=== PATIENT | male | born 1955 | race Two or more races ===

== ENCOUNTER 2023-02-16 19:39 | Inpatient (IN) | payer MEDICARE, MEDICAID ==
[~2023-02-16] VITALS: Ht 175.3 cm; Wt 91.6 kg
[2023-02-16] MEDS ORDERED: MORPHINE SULFATE 4 MG/ML SYR/VIAL IV ONE (20:00)
[2023-02-16] MEDS ORDERED: ONDANSETRON HCL 4 MG/2 ML VIAL IV ONE (20:00)
[2023-02-16 20:05] LABS: Basophils # (auto) 0 10 ^3/uL (0-0.2); Basophils % (auto) 0.8 % (0.0-2.0); Eosinophils # (auto) 0 10 ^3/uL (0-0.8); Eosinophils % (auto) 1.1 % (0.0-7.0); Hematocrit 49.1 % (41.0-53.0); Hemoglobin 16.7 g/dL (13.5-17.5); Lymphocytes # (auto) 0.9 10 ^3/uL (0.4-5.4); Lymphocytes % (auto) 21.9 % (10.0-50.0); Mean Corpuscular Hemoglobin 30.1 pg (28.0-32.0); Mean Corpuscular Hgb Conc. 34.1 g/dL (32.0-36.0); Mean Corpuscular Volume 88.3 fL (80.0-100.0); Monocytes # (auto) 0.5 10 ^3/uL (0-1.3); Monocytes % (auto) 11.9 % (0.0-12.0); Neutrophils # (auto) 2.6 10 ^3/uL (1.6-8.6); Neutrophils % (auto) 64.3 % (37.0-80.0); Nucleated Red Blood Cells % 0.7 %; Red Blood Cells 5.56 10^6/uL (4.5-5.90); Red Cell Distribution Width 13.6 % (11.8-14.3)
[2023-02-16 20:21] LABS: Albumin 3.8 g/dL (3.4-5.0); Magnesium 2.1 mg/dL (1.6-2.6); Potassium 3.6 mmol/L (3.5-5.1)
[2023-02-16 20:24] LABS: BUN/Creatinine Ratio 14.5 (10.0-20.0); Bilirubin, Total 0.8 mg/dL (0.2-1.0); Total Protein 6.9 g/dL (6.4-8.2)
[2023-02-16 21:15] LABS: Urine WBC None Seen /hpf (0 - 3)
[2023-02-16 21:22] LABS: Urine Bacteria NONE SEEN /hpf (None Seen); Urine Blood Negative /uL (Negative); Urine Specific Gravity 1.007 (1.001-1.035)
[2023-02-16] MEDS ORDERED: HEPARIN SODIUM (PORCINE) 5000 UNITS/ML 1ML VIAL IV ONE (23:45)
[2023-02-16] MEDS ORDERED: HEPARIN DRIP/D5W 100UNITS/ML 250 ML IV SCH (23:45)
[2023-02-17] VITALS (12 sets, daily range): BP systolic 139–171; BP diastolic 81–98
[2023-02-17] MEDS ORDERED: MORPHINE SULFATE 4 MG/ML SYR/VIAL IV ONE
[2023-02-17] MEDS ORDERED: ONDANSETRON HCL 4 MG/2 ML VIAL IV ONE
[2023-02-17 00:26] LABS: INR 1.03 (0.9-1.15); Partial Thromboplastin Time 23.9 SEC (24.5-34.5)
[2023-02-17] MEDS ORDERED: ACETAMINOPHEN 325 MG TAB PO PRN (01:15)
[2023-02-17] MEDS ORDERED: DEXTROSE (50%) 50ML SYRG IV PRN (01:15)
[2023-02-17] MEDS ORDERED: HYDROcodone-ACET 5/325MG TAB PO PRN (01:15)
[2023-02-17] MEDS ORDERED: DOCUSATE SOD 100 MG CAP PO PRN (01:15)
[2023-02-17] MEDS ORDERED: MORPHINE SULFATE INJ 2 MG/ml SYRG IV PRN ×3 (01:15→15:15)
[2023-02-17] MEDS ORDERED: ONDANSETRON HCL 4 MG/2 ML VIAL IV PRN (01:15)
[2023-02-17] MEDS: SODIUM CHLORIDE 0.9% 1,000 ML IV SCH ×3 (03:04→20:35)
[2023-02-17] MEDS: ACCU-CHEK COMFORT CURVE STRIP VI SCH ×4 (06:15→22:39)
[2023-02-17] MEDS ORDERED: NITROGLYCERIN 0.4 MG SL TAB SL PRN ×2 (06:45→15:15)
[2023-02-17 07:02] LABS: Basophils # (auto) 0 10 ^3/uL (0-0.2); Basophils % (auto) 0.4 % (0.0-2.0); Eosinophils # (auto) 0.1 10 ^3/uL (0-0.8); Eosinophils % (auto) 1.9 % (0.0-7.0); Hemoglobin 16.3 g/dL (13.5-17.5); Lymphocytes % (auto) 30.1 % (10.0-50.0); Mean Corpuscular Hemoglobin 30.6 pg (28.0-32.0); Mean Corpuscular Hgb Conc. 34.7 g/dL (32.0-36.0); Mean Corpuscular Volume 88.4 fL (80.0-100.0); Monocytes # (auto) 0.4 10 ^3/uL (0-1.3); Monocytes % (auto) 13.1 % (0.0-12.0); Neutrophils # (auto) 1.8 10 ^3/uL (1.6-8.6); Neutrophils % (auto) 54.5 % (37.0-80.0); Nucleated Red Blood Cells % 0.4 %; Red Blood Cells 5.32 10^6/uL (4.5-5.90); Red Cell Distribution Width 13.5 % (11.8-14.3); White Blood Cell 3.4 10^3/uL (4.4-10.8)
[2023-02-17 07:32] LABS: Potassium 3.7 mmol/L (3.5-5.1)
[2023-02-17] MEDS: InsuLIN REG 1unit/0.01ml Soln (100units/ml) SC SCH ×4 (07:32→23:32)
[2023-02-17] MEDS: FAMOTIDINE (10MG/ML) 2ML VL IV SCH ×2 (07:32→22:37)
[2023-02-17 07:46] LABS: Albumin 3.6 g/dL (3.4-5.0); Bilirubin, Total 0.7 mg/dL (0.2-1.0); Calcium 8.7 mg/dL (8.5-10.1); Total Protein 6.6 g/dL (6.4-8.2)
[2023-02-17 08:33] LABS: INR 1.07 (0.9-1.15); Partial Thromboplastin Time 55.5 SEC (24.5-34.5)
[2023-02-17] MEDS ORDERED: IODIXANOL 320MG/ML 100ML BTL IV ONE ×3 (13:03→14:31)
[2023-02-17] MEDS ORDERED: HEPARIN IN NS 1000Units/500mL 1,500 ML ONE (13:03)
[2023-02-17] MEDS ORDERED: LIDOCAINE 2%HCL (LOCAL ANESTH.) INJ 20ML MDV ONE (13:03)
[2023-02-17] MEDS ORDERED: HEPARIN SODIUM (PORCINE) 5000 UNITS/ML 1ML VIAL ONE ×2 (13:23→14:10)
[2023-02-17] MEDS ORDERED: MIDAZOLAM HCL 2MG/2ML 2ml VIAL (1mg/ml) ONE (13:24)
[2023-02-17] MEDS ORDERED: fentaNYL CITRATE 100 MCG/2 ML VL ONE (13:24)
[2023-02-17] MEDS ORDERED: VERAPAMIL 2.5MG/ML INJ 2ML VIAL IV ONE (13:24)
[2023-02-17 14:37] LABS: Cholesterol 211 mg/dL (< 200); HDL Cholesterol 50 mg/dL (40-59); LDL Cholesterol 129 mg/dL (< 100); Triglycerides 189 mg/dL (< 150)
[2023-02-17] MEDS ORDERED: ASPirin 325 MG TAB ONE (14:55)
[2023-02-17] MEDS ORDERED: CLOPIDOGREL 300 MG TAB ONE (14:55)
[2023-02-17] MEDS ORDERED: SODIUM CHLORIDE 0.9% 1,000 ML IV SCH (15:00)
[2023-02-17] MEDS ORDERED: FURO40TA4 PO (17:26)
[2023-02-17] MEDS ORDERED: BENZ0.5T19 PO (17:26)
[2023-02-17] MEDS ORDERED: CLON0.5T4 PO (17:26)
[2023-02-17] MEDS ORDERED: METF-372 PO (17:26)
[2023-02-17] MEDS ORDERED: ARIP5TAB36 PO (17:26)
[2023-02-17] MEDS ORDERED: CARI1CAP PO (17:26)
[2023-02-17] MEDS ORDERED: ISO60SRT PO (17:26)
[2023-02-17] MEDS ORDERED: SERT100T PO (17:26)
[2023-02-17] MEDS ORDERED: SITA100T7 PO (17:26)
[2023-02-17] MEDS ORDERED: CLOP75TA70 PO (17:26)
[2023-02-17 20:08] LABS: Basophils # (auto) 0 10 ^3/uL (0-0.2); Basophils % (auto) 0.5 % (0.0-2.0); Eosinophils # (auto) 0.2 10 ^3/uL (0-0.8); Eosinophils % (auto) 3.9 % (0.0-7.0); Hematocrit 46.6 % (41.0-53.0); Hemoglobin 16.1 g/dL (13.5-17.5); Lymphocytes % (auto) 22.7 % (10.0-50.0); Mean Corpuscular Hemoglobin 30.6 pg (28.0-32.0); Mean Corpuscular Hgb Conc. 34.6 g/dL (32.0-36.0); Mean Corpuscular Volume 88.5 fL (80.0-100.0); Monocytes # (auto) 0.4 10 ^3/uL (0-1.3); Monocytes % (auto) 10.4 % (0.0-12.0); Neutrophils # (auto) 2.6 10 ^3/uL (1.6-8.6); Neutrophils % (auto) 62.5 % (37.0-80.0); Nucleated Red Blood Cells % 0.4 %; Red Blood Cells 5.26 10^6/uL (4.5-5.90); Red Cell Distribution Width 13.4 % (11.8-14.3); White Blood Cell 4.2 10^3/uL (4.4-10.8)
[2023-02-17] MEDS ORDERED: HEPARIN DRIP/D5W 100UNITS/ML 250 ML IV SCH (20:15)
[2023-02-18 02:28] LABS: INR 1.07 (0.9-1.15); Partial Thromboplastin Time 43.7 SEC (24.5-34.5)
[2023-02-18] MEDS ORDERED: HEPARIN DRIP/D5W 100UNITS/ML 250 ML IV SCH (03:30)
[2023-02-18 05:00] VITALS: BP 123/70
[2023-02-18 06:30] LABS: Basophils # (auto) 0 10 ^3/uL (0-0.2); Basophils % (auto) 0.7 % (0.0-2.0); Eosinophils # (auto) 0.2 10 ^3/uL (0-0.8); Eosinophils % (auto) 5.9 % (0.0-7.0); Hematocrit 43.5 % (41.0-53.0); Hemoglobin 15.2 g/dL (13.5-17.5); Lymphocytes # (auto) 0.9 10 ^3/uL (0.4-5.4); Lymphocytes % (auto) 28.4 % (10.0-50.0); Mean Corpuscular Hgb Conc. 34.9 g/dL (32.0-36.0); Mean Corpuscular Volume 88.9 fL (80.0-100.0); Monocytes # (auto) 0.3 10 ^3/uL (0-1.3); Monocytes % (auto) 10.8 % (0.0-12.0); Neutrophils # (auto) 1.7 10 ^3/uL (1.6-8.6); Neutrophils % (auto) 54.2 % (37.0-80.0); Nucleated Red Blood Cells % 0.2 %; Red Blood Cells 4.89 10^6/uL (4.5-5.90); Red Cell Distribution Width 13.9 % (11.8-14.3); White Blood Cell 3.2 10^3/uL (4.4-10.8)
[2023-02-18 06:56] LABS: Potassium 3.6 mmol/L (3.5-5.1)
[2023-02-18] MEDS: InsuLIN REG 1unit/0.01ml Soln (100units/ml) SC SCH ×4 (06:57→22:56)
[2023-02-18] MEDS: ACCU-CHEK COMFORT CURVE STRIP VI SCH ×4 (06:57→22:57)
[2023-02-18 07:07] LABS: Albumin 2.9 g/dL (3.4-5.0); BUN/Creatinine Ratio 11.2 (10.0-20.0); Bilirubin, Total 0.5 mg/dL (0.2-1.0); Calcium 8.3 mg/dL (8.5-10.1); Total Protein 5.9 g/dL (6.4-8.2)
[2023-02-18 09:06] VITALS: BP 105/60
[2023-02-18] MEDS: ASPirin-EC 81 mg tab PO SCH (09:28)
[2023-02-18] MEDS: CLOPIDOGREL BISULFATE 75 MG TAB PO SCH (09:28)
[2023-02-18] MEDS: FAMOTIDINE (10MG/ML) 2ML VL IV SCH ×2 (09:29→22:57)
[2023-02-18] MEDS ORDERED: ATORVASTATIN 20 MG TAB PO ONE (10:45)
[2023-02-18] MEDS ORDERED: ALPR0.5T7 PO (10:48)
[2023-02-18 13:13] VITALS: BP 122/71
[2023-02-18] MEDS ORDERED: ALPRAZolam 0.5 MG TAB PO PRN (14:00)
[2023-02-18 14:44] LABS: INR 1.06 (0.9-1.15); Partial Thromboplastin Time 56.7 SEC (24.5-34.5)
[2023-02-18] MEDS ORDERED: CLOPIDOGREL 300 MG TAB PO ONE (16:45)
[2023-02-18 16:46] VITALS: BP 126/62
[2023-02-18] MEDS: SODIUM CHLORIDE 0.9% 1,000 ML IV SCH (17:32)
[2023-02-18 22:00] VITALS: BP 139/80
[2023-02-19 05:00] VITALS: BP 113/77
[2023-02-19] MEDS: ACCU-CHEK COMFORT CURVE STRIP VI SCH ×2 (06:27→11:30)
[2023-02-19] MEDS: InsuLIN REG 1unit/0.01ml Soln (100units/ml) SC SCH ×2 (06:28→11:30)
[2023-02-19] MEDS: CLOPIDOGREL BISULFATE 75 MG TAB PO SCH (08:40)
[2023-02-19] MEDS: FAMOTIDINE (10MG/ML) 2ML VL IV SCH (08:40)
[2023-02-19] MEDS: ASPirin-EC 81 mg tab PO SCH (08:40)
[2023-02-19] MEDS ORDERED: ASPI-463 PO (09:13)
[2023-02-19] MEDS ORDERED: NITR0.4S29 SL (09:13)
[2023-02-19] MEDS ORDERED: CLOP75TA28 PO (09:13)
[2023-02-19 09:22] VITALS: BP 142/79
[2023-02-19] MEDS ORDERED: CLOPIDOGREL BISULFATE 75 MG TAB PO SCH (10:00)
[2023-02-19 10:22] VITALS: BP 128/79
[2023-02-19] MEDS ORDERED: ATORVASTATIN 20 MG TAB PO SCH (22:00)
== END 2023-02-19 11:30 | disposition home or self-care (01) | DRG 247 ==
LOC: EDBD 19:39 → ER 19:39 → TELE 02-17 06:44 → TELE-CENTR 02-17 16:15
PROVIDERS: ADMIT Nurse Practitioner Family; ATTEND Family Medicine
PROC: 027034Z Dilation of Coronary Artery, One Artery with Drug-eluting Intraluminal Device, Percutaneous Approach (ICD-10-PCS; principal; 2023-02-17)
PROC: 4A023N7 Measurement of Cardiac Sampling and Pressure, Left Heart, Percutaneous Approach (ICD-10-PCS; 2023-02-17)
PROC: B211YZZ Fluoroscopy of Multiple Coronary Arteries using Other Contrast (ICD-10-PCS; 2023-02-17)
PROC: B215YZZ Fluoroscopy of Left Heart using Other Contrast (ICD-10-PCS; 2023-02-17)
PROC: B213YZZ Fluoroscopy of Multiple Coronary Artery Bypass Grafts using Other Contrast (ICD-10-PCS; 2023-02-17)
PROC: B218YZZ Fluoroscopy of Left Internal Mammary Bypass Graft using Other Contrast (ICD-10-PCS; 2023-02-17)
PROC: 30233R1 Transfusion of Nonautologous Platelets into Peripheral Vein, Percutaneous Approach (ICD-10-PCS; 2023-02-17)
DX: I21.4 Non-ST elevation (NSTEMI) myocardial infarction (principal); D69.6 Thrombocytopenia, unspecified; I25.10 Atherosclerotic heart disease of native coronary artery without angina pectoris; I16.0 Hypertensive urgency; E66.9 Obesity, unspecified; I10 Essential (primary) hypertension; E11.9 Type 2 diabetes mellitus without complications; E78.5 Hyperlipidemia, unspecified; Z68.29 Body mass index [BMI] 29.0-29.9, adult; Z95.1 Presence of aortocoronary bypass graft; I25.2 Old myocardial infarction; Z95.5 Presence of coronary angioplasty implant and graft
CPT/HCPCS: 36415; 71045; 80053; 80061; 81001; 82962; 83036; 83735; 83880; 84484; 85025; 85610; 85730; 86850; 86900; 86901; 92928; 93005; 93306; 93459; 96374; 96375; 99152; 99153; C1887; G0378; J1815; J2250; J2405; J3490; Q9967